=== PATIENT | male | born 1995 | race Hispanic/Latino ===

== ENCOUNTER 2021-04-29 18:01 | Emergency (ER) | payer OTHER ==
--- OUTSIDE RECORDS SUMMARY | 2021-04-29 18:03 | XMS REPORT | Continuity of Care Document ---
:1995 Author Organization [facility] t Address [address] [place] [address] Care Team Providers Name Role Phone MD FANNIE MONK Attending Clinician Unavailable ALESHIA Attending Clinician Unavailable JUAN MIGUEL Attending Clinician Unavailable DELMY BULLARD Attending Clinician Unavailable Doctor Unassigned, Name Attending Clinician Unavailable Nurse, Pob Immunization Attending Clinician Unavailable Domingo Soares DO Attending Clinician MD FANNIE MONK Admitting Clinician Unavailable Payers Payer Name Policy Type Policy Number Effective Date Expiration Date S ource Problems Condition Condition Condition Status Onset Resolution Last Treating Co mments Source Name Details Category Date Date Treatment Clinician Date Seasonal Seasonal Diagnosis Active [facility] - rhinitis, rhinitis, Vikram ban unspecifie unspecifie l d trigger d trigger Outp ati ent Clinics Acquired Acquired Diagnosis Active [facility] pectus pectus [facility] - excavatum excavatum Vikram ban l Outpati ent Clinics Encounter Encounter Diagnosis Active [facility] - general general [facility]oria adult adult l medical medical Outpati examinatio examinatio en t n with n with Clinics abnormal abnormal findings findings Anxiety Anxiety Problem [facility] Pectus Pectus Problem Active [facility] excavatum excavatum [facility] Allergies, Adverse Reactions, Alerts This patient has no known allergies or adverse reactions. Social History Social Habit Start Date Stop Date Quantity Comments Source Sex Assigned At [birth year] [facility] 00:00:00 00:00:00 [facility] Smoking Status Start Date Stop Date Source Unknown if ever smoked [facility] Medications This patient has no known medications. Immunizations Ordered Filled Immunization Date Status Comments Sourc e Immunization Name Name SARS-COV-2 COVID-19 2020-12-11 Completed Unive rsity of PFIZER VACCINE 00:00:00 [facility] SARS-COV-2 COVID-19 2020-12-11 Completed Unive rsity of PFIZER VACCINE 00:00:00 [facility] SARS-COV-2 COVID-19 2020-11-20 Completed Unive rsity of PFIZER VACCINE 00:00:00 [facility] SARS-COV-2 COVID-19 2020-11-20 Completed Unive rsity of PFIZER VACCINE 00:00:00 [facility] Procedures Procedure Date / Time Performed Performing Clinician Sourc e EXTERNAL PROVIDER 2021-02-05 05:01:00 Doctor Unassigned, No [facility] [place] RECORDS Name [facility] SARS-COV-2 COVID-19 2020-12-11 19:26:31 Doctor Unassigned, No [facility] [place] VACCINE,0.3ML,IM Name Medical Branch (PFIZER) Encounters Start End Encounter Admission Attending Care Care Encounter Source Date/Time Date/Time Type Type Clinicians Facility Department ID 2021-04-20 2021-04-20 Outpatient PENDING SALE TO [facility] [id number] [address] [place] 00:00:00 00:00:00 [facility] [address] 2021-04-20 2021-04-20 Outpatient PENDING SALE TO [facility] [id number] 156 [place] 00:00:00 00:00:00 PRIYANK [address] 2021-04-20 2021-04-20 Outpatient KIET BULLARD [facility] [id number] 28[address] [place] 00:00:00 00:00:[address] 2021-02-25 2021-02-25 Outpatient KIET BULLARD [facility] [id number] 07:40:00 07:40:[facility] 2021-02-05 2021-02-05 Orders Doctor GRECO [id number] [facility] 00:00:00 00:00:00 Only Unassigned, XIOMARA [id number] [facility] [place] [facility] [id number] Eduardo as [id number] [address] 2021-01-26 2021-01-26 Outpatient KLEBUChidi, [facility] [id number] 239 [place] 00:00:00 00:00:00 [facility] [address] 2021-01-26 2021-01-26 Outpatient KIET BULLARD [facility] [id number] [place] 00:00:00 00:00:[address] 2021-01-26 2021-01-26 Outpatient KIET BULLARD [facility] [id number] [place] 00:00:00 00:00:[address] 2021-01-19 2021-01-19 Outpatient KIET BULLARD [facility] [id number] [place] 00:00:00 00:00:[address] 2021-01-01 2021-01-01 Outpatient KIET BULLARD [facility] [id number] [place] 00:00:00 00:00:00 [address] 2020-12-11 2020-12-11 Imm/Inj Nurse, Adc Pob Immunization [facility] [id number] [facility] 14:21:07 14:21:36 Visit Mendel [id number] [id number] Devyn Peters [phone] Sd dical nal 421 [facility] 2019-10-14 2019-10-14 [id number] [facility] 14:00:00 14:00:00 [facility] Results Test Description Test Time Test Comments Results Result Comments Source SARS-CoV-2 (COVID-19) RNA [Presence] in Respiratory sp ecimen by 2021-04-20 16:12:22 ELSIE with probe detection Test Item Value Reference Range Interpretation Comme nts SARS-CoV-2 (COVID-19) RNA [Presence] in Respiratory Not detected No t-Detected specimen by ELSIE with probe detection (test code = 33136-5) Whether patient is employed in a healthcare setting (test code = 36830-7) Whether the patient has symptoms related to condition of interest (test code = 55194-7) Patient was hospitalized because of this condition (test code = 85178-5) Whether the patient was admitted to intensive care unit (ICU) for condition of interest (test code = 70109-2) Whether patient resides in a congregate care setting (test code = 30826-5)
[2021-04-29] MEDS ORDERED: METHYLPREDNISOLONE 125 MG INJ ONE (18:11)
[2021-04-29] MEDS ORDERED: FAMOTIDINE 20 MG TAB ONE (18:11)
--- NOTE | 2021-04-29 20:15 | ER ---
Nurse's Notes [facility] Name: Marvin Johnson Age: 25 yrs Sex: Male : 1995 Arrival Date: 04/29/2021 Time: 18:01 Bed 10 Private MD: Diagnosis: Allergic urticaria Presentation: 04/29 18:03 Chief complaint: Patient states: AIRWAY INTA[employer]; rash started pt took Benadryl 50mg jh5 approx 30 min. HIVES to bilateral arms trunk. Coronavirus screen: Vaccine status: Patient reports receiving the 2nd dose of the covid vaccine. Client denies travel out of the [place] in the last 14 days. Ebola Screen: Patient negative for fever greater than or equal to 101.5 degrees Fahrenheit, and additional compatible Ebola Virus Disease symptoms Patient denies exposure to infectious person. Patient denies travel to an Ebola-affected area in the 21 days before illness onset. Onset: The symptoms/episode began/occurred 1 hour(s) ago. Anaphylaxis evaluation, no signs or symptoms of anaphylaxis were noted. Initial Sepsis Screen: Does the patient meet any 2 criteria? No. Patient's initial sepsis screen is negative. Does the patient have a suspected source of infection? No. Patient's initial sepsis screen is negative. Risk Assessment: Do you want to hurt yourself or someone else? Patient reports no desire to harm self or others. Onset of symptoms was April 29, 2021. 18:03 Method Of Arrival: Ambulatory [facility] 18:03 Acuity: KARMA 4 jh5 Triage Assessment: 18:07 General: Appears in no apparent distress. uncomfortable, slender, well groomed, well jh5 developed, well nourished, Behavior is calm, cooperative, appropriate for age. Pain: Denies pain. Historical: - Allergies: 18:07 No Known Allergies; [facility] - Home Meds: 18:07 None [Active]; 5 - PMHx: 18:07 None; [facility] - Immunization history:: Adult Immunizations up to date. - Social history:: Smoking status: Patient denies any tobacco usage or history of. Screenin:08 Abuse screen: Denies threats or abuse. Denies injuries from another. Nutritional [facility] screening: No deficits noted. Tuberculosis screening: No symptoms or risk factors identified. Fall Risk None identified. Assessment: 18:08 Respiratory: Airway is patent Respiratory effort is even, unlabored, Breath sounds are jh5 clear. Vital Signs: 18:03 BP 150 / 97; Pulse 109; Resp 18; Temp 98.6; Pulse Ox 99% ; Weight 92.99 kg; Height 6 jh5 ft. 0 in. (182.88 cm); Pain 0/10; 18:03 Body Mass Index 27.80 (92.99 kg, 182.88 cm) 5 ED Course: 18:01 Patient arrived in ED. as 18:06 Anant Briggs PA is PHCP. cp 18:06 Daryn Marrero MD is Attending Physician. cp 18:07 Triage completed. 5 18:07 Arm band placed on left wrist. 5 18:08 Patient has correct armband on for positive identification. 5 18:08 No provider procedures requiring assistance completed. Patient did not have IV access 5 during this emergency room visit. 20:34 Kerri Adam RN is Primary Nurse. sf1 Administered Medications: 18:14 Drug: SOLU-Medrol (methylPREDNISolone sodium succinate) 125 mg Route: IM; Site: left [facility] deltoid; 18:14 Drug: Pepcid (famotidine) 20 mg Route: PO; [facility] Outcome: 20:14 Discharge ordered by MD. cp 20:34 Discharged to home ambulatory. sf1 20:34 Condition: stable 20:34 Discharge instructions given to patient, Instructed on discharge instructions, follow up and referral plans. Demonstrated understanding of instructions, follow-up care, medications, Prescriptions given X 2, Following a medical screening exam, the patient was provided information regarding alternative care sites and resources available per registration personnel. 20:34 Patient left the ED. sf1 Signatures: Unique Lopez as Anant Briggs PA PA cp Marli uBllock, RN RN 5 Kerri Adam RN RN sf1
--- NOTE | 2021-04-29 20:15 | EDPHYS ---
Physician Documentation [facility] Name: Marvin Johnson Age: 25 yrs Sex: Male : 1995 Arrival Date: 04/29/2021 Time: 18:01 Bed 10 Private MD: ED Physician Daryn Marrero HPI: 04/29 18:10 This 25 yrs old Male presents to ER via Ambulatory with complaints of Allergic cp Reaction. 18:10 The patient presents with rash, of the right arm and left arm. Onset: The cp symptoms/episode began/occurred suddenly, today. Associated signs and symptoms: Pertinent negatives: abdominal pain, dysphagia, fever, headache, Light headed nausea, shortness of breath, vomiting. Possible causes: The patient has no known obvious cause for the symptoms. At home the patient or guardian has treated the symptoms with Benadryl. Severity of symptoms: in the emergency department the symptoms are unchanged despite home interventions. Historical: - Allergies: 18:07 No Known Allergies; [facility] - Home Meds: 18:07 None [Active]; [facility] - PMHx: 18:07 None; [facility] - Immunization history:: Adult Immunizations up to date. - Social history:: Smoking status: Patient denies any tobacco usage or history of. ROS: 18:15 Skin: Positive for rash, of the right arm and left arm, Negative for cellulitis. cp 18:15 Eyes: Negative for injury, pain, redness, and discharge. cp 18:15 Constitutional: Negative for body aches, chills, fever, poor PO intake. 18:15 ENT: Negative for sore throat, difficulty swallowing, difficulty handling secretions. 18:15 Cardiovascular: Negative for chest pain, edema, palpitations. 18:15 Respiratory: Negative for cough, shortness of breath, wheezing. 18:15 Abdomen/GI: Negative for abdominal pain, nausea, vomiting, and diarrhea. 18:15 Neuro: Negative for altered mental status, headache, weakness. 18:15 All other systems are negative. Exam: 18:20 Constitutional: The patient appears in no acute distress, alert, awake, comfortable, cp non-diaphoretic, non-toxic, well developed, well nourished. 18:20 Head/Face: Normocephalic, atraumatic. cp 18:20 Cardiovascular: Rate: tachycardic, Rhythm: regular. 18:20 Respiratory: the patient does not display signs of respiratory distress, Respirations: normal, no use of accessory muscles, no retractions, labored breathing, is not present, Breath sounds: are clear throughout, no decreased breath sounds, no stridor, no wheezing. 18:20 Skin: cellulitis, is not appreciated, consistent with urticaria, on the right arm and left arm. Vital Signs: 18:03 BP 150 / 97; Pulse 109; Resp 18; Temp 98.6; Pulse Ox 99% ; Weight 92.99 kg; Height 6 [facility] ft. 0 in. (182.88 cm); Pain 0/10; 18:03 Body Mass Index 27.80 (92.99 kg, 182.88 cm) [facility] MDM: 19:28 Patient medically screened. cp 20:00 Differential diagnosis: anaphylaxis, angioedema, urticaria. cp 20:14 Data reviewed: vital signs, nurses notes. cp 20:14 Counseling: I had a detailed discussion with the patient and/or guardian regarding: the cp historical points, exam findings, and any diagnostic results supporting the discharge/admit diagnosis, to return to the emergency department if symptoms worsen or persist or if there are any questions or concerns that arise at home. Response to treatment: the patient's symptoms have markedly improved after treatment, rash markedly improved. Will discharge to home for continued monitoring. Administered Medications: 18:14 Drug: SOLU-Medrol (methylPREDNISolone sodium succinate) 125 mg Route: IM; Site: left [facility] deltoid; 18:14 Drug: Pepcid (famotidine) 20 mg Route: PO; [facility] Disposition Summary: 04/29/21 20:14 Discharge Ordered Location: Home cp Problem: new cp Symptoms: have improved cp Condition: Stable cp Diagnosis - Allergic urticaria cp Followup: cp - With: Private Physician - When: 2 - 3 days - Reason: Recheck today's complaints Discharge Instructions: - Discharge Summary Sheet cp - Allergies, Adult cp - Hives cp Forms: - Medication Reconciliation Form cp - Thank You Letter cp - Antibiotic Education cp - Prescription Opioid Use cp Prescriptions: - Pepcid 20 mg Oral Tablet - take 1 tablet by ORAL route every 12 hours for 5 days; 10 tablet; Refills: 0, cp Product Selection Permitted - Prednisone 20 mg Oral Tablet - take 2 tablets by ORAL route once daily for 5 days; 10 tablet; Refills: 0, cp Product Selection Permitted Signatures: Anant Briggs PA PA cp Rees, Jessica RN RN jh5
[2021-04-29 20:52] VITALS: BP 150/97; TEMP 98.6; O2SAT 99
== END 2021-04-29 20:34 | disposition home or self-care (01) ==
LOC: ER 18:01
DX: L50.0 Allergic urticaria (principal)
CPT/HCPCS: 96372; 99283; J2930